=== PATIENT | male | born 1940 | race Caucasian/White ===

== ENCOUNTER 2019-07-17 20:45 | Emergency (ER) | payer MEDICARE, SELFPAY ==
--- NOTE | ~2019-07-17 | CT_ITS ---
EXAMINATION: CT abdomen pelvis w con EXAM DATE: 07/17/2019 21:56 INDICATION: Left upper quadrant pain. Left anterior lower rib pain. TECHNIQUE: Spiral CT of the abdomen and pelvis was performed following intravenous injection of 100 m L Omnipaque 350. Axial, coronal and sagittal images were reviewed. The dose-length product (DLP) fo r this examination was 450.93 mGy-cm. The exposure was tailored according to patient size (auto mA e xposure control), and iterative reconstruction (ASIR) was used as additional dose reduction technique . There is no prior study for comparison. FINDINGS: There are liver and splenic granulomata. The liver, spleen, adrenal glands and pancreas ar e otherwise unremarkable. The gallbladder is contracted but otherwise unremarkable. Portal and sple fercho veins are patent. Kidneys enhance symmetrically. There is no hydronephrosis. There is a cyst at the lower pole of the left kidney measuring 5 cm. Prostate not identified, may been resected. The bladder is unremarkable. There is no retroperitoneal or pelvic lymphadenopathy. There is mild to m oderate scattered arteriosclerotic disease. Cecal resection. Stomach is distended but otherwise unremarkable. There is a distal ileal loops whic h has herniated into the right inguinal canal with a moderate sized hernia. There is mild to moderate colonic diverticulosis. There is no adjacent inflammatory change to suggest diverticulitis. There i s expected amount of colonic stool. No free intraperitoneal gas. The heart is normal in size. Th ere are no pericardial or pleural effusions. There is moderate emphysema and right basilar predomina nt pulmonary fibrosis. Acute nondisplaced left eighth and ninth rib fractures in the mid axillary li ne. IMPRESSION: 1. Acute left eighth and ninth rib fractures laterally. 2. Moderate-sized right inguinal hernia containing nonobstructed distal ileum. 3. Sigmoid colonic diverticulosis. 4. Basilar emphysema and fibrosis. Reviewed, dictated and finalized at location A. 'S MASTER
[2019-07-17 20:48] VITALS: BP 156/80; PULSE 88; RESP 20; TEMP 36.9; O2SAT 99
--- NOTE | 2019-07-17 21:11 | ED.FALL ---
HPI - Fall General Chief Complaint: Fall Stated Complaint: fall/abd pain Time Seen by Provider: 07/17/19 20:54 Source: patient Mode of arrival: wheelchair Limitations: no limitations History of Present Illness HPI Narrative: This is a 79 year old male that presents to the ER for left upper quadrant abdominal pain since a fall this afternoon. Reports he tripped over a rug and fell into a table. Reports since he has had pain in the left lower ribs and left upper quadrant. Pain is worse with movement and relieved with rest. Reports he put some ice on the area with little relief. Denies hitting his head, loss of consciousness, other injuries, shortness of breath, vision changes, or vomiting. Related Data Allergies Allergy/AdvReac Type Severity Reaction Status Date / Time No Known Allergies Allergy Verified 07/17/19 20:59 Review of Systems Review of Systems: Narrative: CONSTITUTIONAL: Denies fever EYES: Denies visual changes CARDIOVASCULAR: Reports chest pain RESPIRATORY: Denies dyspnea. GASTROINTESTINAL: Reports abdominal pain. Denies nausea, vomiting, or diarrhea. MUSCULOSKELETAL: Denies back pain NEUROLOGIC: Denies numbness, or weakness. All systems reviewed & are unremarkable except as noted in HPI and below PMFSH Past Medical History Medical History (Updated 07/17/19 @ 22:23 by Elke Dunlap PA-C) History of hypertension History of prostate cancer Social History Social History Smoking status: Former smoker Alcohol intake: never Exam Narrative: Exam Narrative: GENERAL: Well-appearing, well-nourished, and in no acute distress. HEAD: Normocephalic, atraumatic. EYES: PERRLA and EOMI. ENT: Nares clear, no rhinorrhea or epistaxis. Mucous membranes moist. Oropharynx without tonsillar hypertrophy exudate or other lesions. Bilateral TMs pearly brock non-bulging NECK: Supple. No adenopathy or masses. No midline spinal tenderness CHEST: Clear to auscultation. No respiratory distress. No wheezes rales or rhonchi. Tender to palpation of the left lower ribs anteriorly HEART: Regular rate and rhythm. No murmur heard. Normal peripheral pulses. ABDOMEN: Soft, nondistended, normal active bowel sounds. Mild tenderness to palpation of the LUQ, without guarding BACK: No midline spinal tenderness EXTREMITIES: Normal range of motion. No edema. Strength equal in bilateral upper and lower extremities SKIN: Warm, dry, no rash. NEURO: No focal deficits. Alert and oriented x3. Cranial nerves II through XII grossly intact PSYCH: Normal mood and affect Course Vital Signs Vital signs: Vital Signs Temperature 98.5 F 07/17/19 20:48 Pulse Rate 88 07/17/19 20:48 Respiratory Rate 20 07/17/19 20:48 Blood Pressure 156/80 H 07/17/19 20:48 Pulse Oximetry 99 07/17/19 20:48 Temperature 98.5 F 07/17/19 20:48 Pulse Rate 88 07/17/19 20:48 Respiratory Rate 20 07/17/19 20:48 Blood Pressure 156/80 H 07/17/19 20:48 Pulse Oximetry 99 07/17/19 20:48 MDM - Fall MDM Narrative Medical decision making narrative: Patient presents the emergency department for left lower rib pain and left upper quadrant abdominal pain after fall today. Vitals are stable. CBC with mild normocytic anemia with hemoglobin of 12.4. Metabolic panel with mild elevation in blood glucose, otherwise no acute changes. CT abdomen pelvis shows acute left eighth and ninth rib fractures laterally. No acute intra-abdominal findings. Patient and family were updated on case findings. He was given an incentive spirometer. He will be given a pain medication as needed. He is to follow-up with his primary care doctor. He was given warnings to return to the ER Lab Data Attestation: I reviewed the patient's lab results. Result diagrams: 07/17/19 21:23 07/17/19 21:23 Labs: Lab Results 07/17/19 07/17/19 07/17/19 Range/Units 21:23 21:23 21:23 WBC 10.7 H (4.5-10.0) K/mm3 RBC 4.47 L (4.6-6.20) M/mm3 Hgb 12.4 L
[2019-07-17 21:29] LABS: Hematocrit 38.4 % (42.0-52.0); Hemoglobin 12.4 g/dL (14.0-18.0); Mean Corpuscular HGB Conc 32.3 g/dl (32-36); Mean Corpuscular Hemoglobin 27.7 pg (26-34); Mean Corpuscular Volume 85.9 fl (80-100); Platelet Count Result 279 k/mm3 (150-375); Red Blood Count 4.47 M/mm3 (4.6-6.20); Red Cell Distribution Width 14.7 % (11.5-14.5); White Blood Count 10.7 K/mm3 (4.5-10.0)
[2019-07-17 21:40] LABS: Blood Urea Nitrogen 19 mg/dL (9-20); Calcium 8.7 mg/dL (8.4-10.2); Carbon Dioxide 26 mmol/L (22-30); Chloride 110 mmol/L (98-107); Estimated CRCL calculation 55 ml/min; Estimated Glomerular Filt Rate > 60; Glucose 146 mg/dL (75-110); Potassium 3.9 mmol/L (3.4-5.0); Sodium 141 mmol/L (137-145)
[2019-07-17 21:41] LABS: Partial Thromboplastin Time 26.9 SECONDS (22.3-36.8)
[2019-07-17 21:43] LABS: Band Neutrophils Percent 4 % (0-6); Eosinophils Percent Manual 1 % (0-4); Lymphocytes Absolute Manual 0.64 K/mm3 (1.1-4.5); Monocytes Absolute Manual 0.53 K/mm3 (0.1-0.90); Monocytes Percent Manual 5 % (3-9); Neutrophils Absolute Manual 9.41 K/mm3 (1.3-6.7); Neutrophils Percent Manual 84 % (46-73); Total Cells Counted 100
[2019-07-17 21:44] LABS: Anisocytosis 1+ (NORMAL); Platelet Estimate Adequate (Adequate)
[2019-07-17 22:53] VITALS: BP 145/87; PULSE 83; RESP 18; TEMP 36.3; O2SAT 99
== END 2019-07-17 22:56 | disposition home or self-care (01) ==
PROVIDERS: Physician Assistant; Emergency Provider Emergency Medicine; PCP Physician Assistant
DX: S22.42XA Multiple fractures of ribs, left side, initial encounter for closed fracture (principal); I10 Essential (primary) hypertension; Z85.46 Personal history of malignant neoplasm of prostate; K40.90 Unilateral inguinal hernia, without obstruction or gangrene, not specified as recurrent; K57.90 Diverticulosis of intestine, part unspecified, without perforation or abscess without bleeding; J43.9 Emphysema, unspecified; J84.10 Pulmonary fibrosis, unspecified; Z87.891 Personal history of nicotine dependence; W01.190A Fall on same level from slipping, tripping and stumbling with subsequent striking against furniture, initial encounter
CPT/HCPCS: 36415; 74177; 80048; 85025; 85610; 85730; 99284; Q9967

== ENCOUNTER 2021-04-24 11:54 | Outpatient (CLI) | payer MEDICARE, SELFPAY ==
--- NOTE | ~2021-04-24 | US_ITS ---
EXAMINATION: US venous doppler UE DATE: 04/24/2021 12:38 INDICATION: Left upper extremity pain TECHNIQUE: Grayscale ultrasound images without and with compression and Doppler ultrasound images of the left upper extremity veins were obtained. COMPARISON: None. FINDINGS: The left internal jugular vein, subclavian vein, axillary vein, brachial veins, basilic vein, cephali c vein, radial vein, and ulnar vein are patent. IMPRESSION: 1. No evidence of deep venous thrombosis. Reviewed, dictated and finalized at location A. ING ROOM OPERATOR
== END 2021-04-24 11:55 | disposition home or self-care (01) ==
LOC: ANHIMG 12:05
PROVIDERS: PCP Physician Assistant; Visit Provider Physician Assistant
DX: M79.602 Pain in left arm (principal)
CPT/HCPCS: 93971

== ENCOUNTER → 2022-09-17 12:37 | Outpatient (CLI) | payer MEDICARE, SELFPAY ==
--- NOTE | ~2022-09-17 | US_ITS ---
EXAMINATION: US thyroid DATE: 09/17/2022 13:03 INDICATION: Thyroid nodule. TECHNIQUE: Multiple ultrasound images of the thyroid were obtained. COMPARISON: None. FINDINGS: The right thyroid lobe measures 5.4 x 3.7 x 2.6 cm. The left thyroid lobe measures 5.1 x 2.3 x 1.7 c m. In the right thyroid lobe, there is a 4.0 cm solid, hypoechoic, wider than tall nodule with ill-d efined margin without echogenic foci (TI-RADS TR4). In the left thyroid lobe, there is a 10 mm solid, isoechoic, wider than tall nodule with ill-defined margin without echogenic foci (TR3). In the left thyroid lobe, there is 11 mm solid, isoechoic, wider than tall nodule with ill-defined margin without echogenic foci (TR3). IMPRESSION: 1. Multinodular goiter. Ultrasound-guided fine-needle aspiration of the right thyroid nodule is recom mended. Reviewed, dictated and finalized at location A. IMPRESSION: 1. Multinodular goiter. Ultrasound-guided fine-needle aspiration of the right t hyroid nodule is recommended.
== END ==
PROVIDERS: PCP Physician Assistant; Visit Provider Internal Medicine Pulmonary Disease
DX: E04.2 Nontoxic multinodular goiter (principal)
CPT/HCPCS: 76536

== ENCOUNTER 2022-10-12 13:45 | Outpatient (RCR) | payer MEDICARE, SELFPAY ==
--- NOTE | 2022-07-15 16:07 | PTOPEVAL1 ---
Assessment and note entered by Gayatri Noel, PT Evaluation Information Assessment Status Evaluation Diagnosis Parkinson's Disease and gait dysfunction Onset about 1 year Subjective Information gradual increase in balance and walking problems; have had 5 falls in the 6 months--walking and turning, backing up, happens fast, not sure why; could get himself off the floor by pulling on the walker or a chair; started using the wheeled walker about 6-7 weeks ago; feel more secure with walking using it and use it all the time; like to walk, have a treadmill at home, not using as much due to R knee pain; GOAL: walk with good balance, not have to use the walker, not have any more falls; Reported Pain Level Pain Score Self Report Additional Pain Score Comments has pain in R knee- intermittent and it gives out Assessment PT Clinical Summary Omer has the diagnosis of Parkinson's, gait dysfunction. He recently started using a wheeled walker and has 5 falls in the past 6 months. was present during eval and supportive to pt. His history includes prostate cancer and is taking hormone therapy, which he feels has made him weak . With the evaluation, he has Cuevas balance score of 41/56- difficulty with eyes closed, 360' turn, small base of support and SLS; 2 minute walking test distance is 225'; TUG is 24 seconds; 5 reps sit/stand is 19 seconds; with walking, he has decreased heel strike and problems with initiating gait. Skilled PT services are indicated for the [facility] Parkinson's program, LE strengthening, gait and balance retraining, to increase safety with mobility and decrease falls, with education for home exercises and safety with mobility. Plan of Care Interventions Hot Pack/Cold Pack,Neuro Re-education,Patient/ Caregiver Education,Therapeutic Activities, Therapeutic Exercise Other Interventions LVST program/exercises PT Services Indicated Yes Treatment Frequency and 2x/wk for 5 weeks Duration These treatments will address the objective and functional deficits as defined above. The patient will be advanced safely and appropriately in order for the patient to progress towards his/her prior level of function. Additional exercises wi
--- NOTE | 2022-08-18 14:37 | PTOPPROG ---
Assessment and note entered by Gayatri Noel, PT Evaluation Information Assessment Status Progress Diagnosis Parkinson's Disease and gait dysfunction Onset about 1 year Subjective Information Omer reports: therapy has helped--walking and balance are better, but not where it needs to be; have not fallen since started therapy; been doing the exercises; reports his balance still is not good;some weakness due to cancer med. Assessment PT Clinical Summary Omer has received 9 PT sessions. Compared to the initial evaluation, he has improved with: sit to stand transfer does not lean his thigh on the chair; SLS- able to lift R and L foot and hold for 2-3 seconds; TUG by 2 sec; Cuevas balance score by 5 points to 46/56; strength and coordination of R and L ankle with sitting ankle circles; increased awareness of his gait pattern and how he needs to correct it; He has been educated on HEP and LSVT program. He has not had any falls since starting therapy. is very supportive of pt and assists him with HEP and safety reminders. The goals were partially met. Continue PT treatment to further increase LE strength, gait, balance and mobility skills. With progression of HEP and planning for discharge at next reevaluation. Plan of Care Interventions Gait Training,Neuro Re-education,Patient/Caregiver Education,Therapeutic Activities,Therapeutic Exercise Other Interventions LVST program/exercises PT Services Indicated Yes Treatment Frequency and 2x/wk for 4 weeks Duration These treatments will address the objective and functional deficits as defined above. The patient will be advanced safely and appropriately in order for the patient to progress towards his/her prior level of function. Additional exercises will be introduced and as well as a comprehensive home exercise program upon discharge, if needed, ?to ensure carryover of functional gains achieved in the clinic. This treatment plan has been reviewed and agreement upon by the patient.
--- NOTE | 2022-09-13 14:22 | PTOPEVAL1 ---
Assessment and note entered by Gayatri Noel, PT Evaluation Information Assessment Status Progress Diagnosis bilateral anterior knee pain Onset about 1 year Subjective Information Omer and Charmaine report: walking is better, feeling better; have been doing the Parkinson's/ LSVT exercises at home; saw the knee dr- have a new PT order; changed his med to diflocan and it is helping his knee pain; dr told him not to do sit to stand exercises--has to use his arms for sit to standing; PAIN: range of 1-3/10 R knee; new pain med is helping; increase pain with standing, steps and walking; use the wheeled walker; heat helps decrease his pain; have tried a velcro brace and it did not help; Reported Pain Level Pain Score Self Report Additional Pain Score Comments range of 1-3/10 R knee; new pain med is helping; increase pain with standing, steps and walking; use the wheeled walker; heat helps decrease his pain; have tried a velcro brace and it did not help; Assessment PT Clinical Summary Omer has received 13 PT sessions for gait/balance, LSVT/Parkinson's program. Compared to the last reevaluation, he is about the same with TUG, 2 minute walking test distance and TUG; he has improved with single leg standing tolerance R and L, Cuevas balance score. He presents with new orders from Dr Flynn for bilateral anterior knee pain. Knee evaluation today, he has pain in R knee, decreased ROM and strength of R knee and hip. Skilled PT services are indicated for modalities to decrease pain in knee, therapeutic exercises to increase strength and flexibility of kness with education for home exercises. He continues to use the wheeled walker for ambulation. Discussed aquatic therapy with pt and he is not interested in, does not like doing water exercises. Plan of Care Interventions Electrical Stimulation,Gait Training,Hot Pack/Cold Pack,Manual Therapy,Neuro Re-education,Patient/ Caregiver Educati,Therapeutic Activities, Therapeutic Exercise,Ultrasound Other Interventions LVST program/exercises PT Services Indicated Yes
--- NOTE | 2022-10-12 14:21 | PTOPDC ---
Assessment and note entered by Gayatri Noel, PT Evaluation Information Assessment Status Discharge Diagnosis bilateral anterior knee pain Onset about 1 year Subjective Information Omer reports: is walking better; balance is better; in the house, for short walks-not using the walker; have not had any falls; have been doing the exercises; pleased with his progress; is going out into the community without any problems; reports: some short term memory and suspicious phobias are occuring with Omer; Reported Pain Level Pain Score Self Report Additional Pain Score Comments pain range in the past week: 1-8/10; showed pt a sample knee brace, [employer]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 Compared to the last reevaluation: R knee pain has increased rating at worst from 2 to 8/10, but he states today not sure about those numbers and how to rate it. His activity level has increased with reported home and community outings /activities; he has not had any falls; TUG has improved by 2 seconds and 2 minute walking test distance increased by 15'. He is performing his HEP with cues from his for technique of movement and to do them. The goals were partially achieved. Discharge PT services; he is to continue with the HEP--leg strengthening and LSVT exercises. He has the LSVT video exercise program. Plan of Care PT Services Indicated No
== END 2022-10-12 16:01 | disposition home or self-care (01) ==
LOC: ANHPT 13:45
PROVIDERS: PCP Physician Assistant
DX: G20 Parkinson's disease (principal)
CPT/HCPCS: 97110; 97116; 97161; 97530

== ENCOUNTER 2023-10-15 15:12 | Emergency (ER) | payer MEDICARE, SELFPAY ==
[2023-10-15] VITALS (25 sets, daily range): BP systolic 94–129; BP diastolic 45–81; PULSE 81–93; RESP 12–28; TEMP 37.1; O2SAT 90–100
--- NOTE | ~2023-10-15 | CT_ITS ---
EXAMINATION: CT pelvis wo con DATE: 10/15/2023 18:07 INDICATION: Pelvic pain. TECHNIQUE: Computed tomography (CT) of the pelvis was performed without intravenous contrast. Automat ed exposure control and iterative reconstruction technique were employed. The dose-length product was 368.27 mGy-cm. COMPARISON: CT abdomen pelvis 07/17/2019 FINDINGS: There are no dilated loops of bowel. There are no pathologically enlarged lymph nodes. Ther e is no free intraperitoneal fluid. Bone alignment is normal. There is a transverse fracture of S3 se gment in near-anatomic alignment. There is mild osteoarthrosis of the hips. There is severe lower lum bar spondylosis. IMPRESSION: 1. Transverse fracture of the S3 segment in near-anatomic alignment. Reviewed, dictated and finalized at location E.
--- NOTE | ~2023-10-15 | CT_ITS ---
EXAMINATION: CT lumbar spine wo con DATE: 10/15/2023 18:07 INDICATION: Low back pain. Pelvic pain. TECHNIQUE: Computed tomography (CT) of the lumbar spine was performed without intravenous contrast. A utomated exposure control and iterative reconstruction technique were employed. The dose-length produ ct was 887.90 mGy-cm. COMPARISON: CT abdomen and pelvis 07/17/2019 FINDINGS: There is 3 degrees dextrocurvature of lumbar spine. There is a compression fracture of L2 w ith 1/5 loss of height. There is a chronic right L4 pars defects. There is 3 mm anterolisthesis of L4 on L5. There is a transverse fracture of S3 segment. There is mildly decreased disc height at L3-L4 and L4-L5 and severely decreased disc height at L5-S1. The following disc levels are specifically dis cussed: L1-L2: The disc is bulging. There is moderate right and mild left facet joint osteoarthritis. There i s mild bilateral neural foraminal stenosis. There is mild central canal stenosis. L2-L3: The disc is bulging. There is severe bilateral facet joint osteoarthritis. There is mild bilat eral neural foraminal stenosis. There is mild central canal stenosis. L3-L4: The disc is bulging. There is moderate bilateral facet joint osteoarthritis. There is mild nydia ateral neural foraminal stenosis. There is mild central canal stenosis. L4-L5: The disc is bulging. There is severe bilateral facet joint osteoarthritis. There is moderate b ilateral neural foraminal stenosis. There is mild central canal stenosis with posterior decompression . L5-S1: The disc is bulging. There is severe bilateral facet joint osteoarthritis. There is severe rig ht and mild left neural foraminal stenosis. There is mild central canal stenosis. IMPRESSION: 1. Acute L2 compression fracture. 2. Transverse fracture of S3 segment. 3. Chronic right L4 pars defect. 4. Severe lumbar spondylosis. Reviewed, dictated and finalized at location E.
--- NOTE | ~2023-10-15 | CT_ITS ---
EXAMINATION: CT brain wo con DATE: 10/15/2023 18:06 INDICATION: Head injury. TECHNIQUE: Computed tomography (CT) of the head was performed without intravenous contrast. The mA wa s adjusted according to patient size. Iterative reconstruction technique was employed. The dose-lengt h product was 605.33 mGy-cm. COMPARISON: None FINDINGS: There is no intracranial hemorrhage, acute infarction, or abnormal intracranial mass lesion . There is diffuse brain volume loss. The ventricles are normal in size. There are likely changes of ocular lens replacement surgeries. There is mild mucosal thickening in the paranasal sinuses. The mas toid air cells are normal. IMPRESSION: 1. Normal aging brain. Reviewed, dictated and finalized at location E. IMPRESSION: 1. Normal aging brain.
--- NOTE | 2023-10-15 16:45 | ED.GENADULT ---
HPI - General Adult General Chief complaint: Fall Stated complaint: glf, back pain Time Seen by Provider: 10/15/23 15:13 History of Present Illness HPI narrative: 83-year-old male presents to the emergency department for evaluation after having a fall in his house. Patient does have history of Parkinson's disease, does have some gait stability issues and does use a walker. Patient attempted to do a U-turn on the walker causing him to lose his balance and fall. Patient states since then he has had lower back pain worsened with movement. While at rest he denies any back pain. Denies any new numbness or weakness. Related Data Home Medications Medication Instructions Recorded Confirmed aspirin 81 mg tablet,delayed 81 mg PO DAILY 10/12/23 release (Adult Aspirin Regimen) carbidopa ER 25 mg-levodopa 100 mg 2 tablet PO TID 10/12/23 tablet,extended release cyanocobalamin (vitamin B-12) 500 250 mcg PO DAILY 10/12/23 mcg tablet donepezil 5 mg tablet 5 mg PO QHS 10/12/23 empagliflozin 10 mg tablet 10 mg PO DAILY 10/12/23 ferrous sulfate 325 mg (65 mg 325 mg PO DAILY 10/12/23 iron) tablet furosemide 20 mg tablet 20 mg PO QAM 10/12/23 ipratropium bromide 21 mcg (0.03 2 spray intranasal BID 10/12/23 %) nasal spray megestrol 20 mg tablet 20 mg PO BID 10/12/23 metoprolol tartrate 25 mg tablet 12.5 mg PO DAILY 10/12/23 polyethylene glycol 3350 17 17 g PO DAILY 10/12/23 gram/dose oral powder (Miralax) rosuvastatin 20 mg tablet 20 mg PO DAILY 10/12/23 spironolactone 25 mg tablet 12.5 mg PO DAILY 10/12/23 vitamins A,C,I-bjhn-watzob 4,296 1 cap PO BID 10/12/23 mcg-226 mg-90 mg capsule (ICaps AREDS) Allergies Allergy/AdvReac Type Severity Reaction Status Date / Time No Known Allergies Allergy Verified 10/12/23 15:16 Review of Systems Review of Systems: All systems reviewed & are unremarkable except as noted in HPI and below PMFSH Past Medical History Medical History (Updated 10/15/23 @ 19:55 by Og Mishra MD) CHF (congestive heart failure) History of hypertension History of prostate cancer Parkinsons disease Family History Family History (Updated 10/12/23 @ 15:18 by Darshana Kaur [facility]) Sibling Diabetes mellitus Mother Cerebrovascular accident Father Throat cancer Social History Social History (Updated 10/12/23 @ 15:22 by Elizabet Oneill [facility]) Smoking status: Former smoker Alcohol intake: never Substance use type: does not use Do You Feel Safe in your Home?: Yes Lack of Transportation: No Lack of Food: Never True Current Housing: I Have Housing Concerned About Future Housing: No Difficulty Paying Gas/Electric Bills: No Difficulty Paying for Meds: No Currently Unemployed: No Education: High School Diploma/GED Difficulty w/ Childcare or Family Care: No Living arrangements: with family Occupation/Education: retired Exam Narrative: APPEARANCE: Well appearing, no pain, no distress, well-nourished. HEAD: normocephalic, atraumatic. EYES: PERRLA/EOMI, conjunctivae clear. NOSE: Normal no drainage EARS:TMS clear with good light reflex. THROAT: Pharynx clear, no exudate. NECK: Supple. No adenopathy, no masses. RESPIRATORY: Airway patent, respirations nonlabored. Clear to auscultation bilaterally, no rales, rhonchi, wheezing. CARDIOVASCULAR: Regular rate and rhythm without murmurs rubs or gallops. ABDOMINAL: Soft, nontender, nondistended, normal bowel sounds MUSCULOSKELETAL: No midline tenderness for lumbar or sacral spine but patient reports when he sits up he has tenderness in the lower back NEURO: Alert. Cranial nerves II through XII intact. Good gait. Good coordination SKIN: Warm, dry. Normal Color Course Vital Signs Vital signs: Vital Signs Temperature 98.7 F 10/15/23 15:12 Pulse Rate 87 10/15/23 15:12 Respiratory Rate 26 H 10/15/23 15:12 Blood Pressure 119/78 10/15/23 15:12 Pulse Oximetry 98 10/15/23 15:
[2023-10-15] MEDS: CYCLOBENZAPRINE HCL 10 MG TABLET PO (16:56)
[2023-10-15] MEDS: HYDROcodone/acetaminophen (*CRX) 5-325 MG TABLET 1 TAB PO (20:46)
== END 2023-10-15 20:47 | disposition home or self-care (01) ==
PROVIDERS: Emergency Provider Emergency Medicine; PCP Physician Assistant
DX: S32.10XA Unspecified fracture of sacrum, initial encounter for closed fracture (principal); M47.816 Spondylosis without myelopathy or radiculopathy, lumbar region; I11.0 Hypertensive heart disease with heart failure; I50.9 Heart failure, unspecified; G20.A1 Parkinson's disease without dyskinesia, without mention of fluctuations; Z85.46 Personal history of malignant neoplasm of prostate; W01.0XXA Fall on same level from slipping, tripping and stumbling without subsequent striking against object, initial encounter
CPT/HCPCS: 70450; 72131; 72192; 99284; A9270

== ENCOUNTER 2023-10-19 04:02 | Emergency (ER) | payer MEDICARE, SELFPAY ==
[2023-10-19 04:01] VITALS: BP 144/90; PULSE 100; RESP 20; TEMP 36.6; O2SAT 96
[2023-10-19 04:10] VITALS: BP 144/90; PULSE 100; RESP 27; TEMP 36.6; O2SAT 98
--- NOTE | 2023-10-19 04:30 | ED.GENADULT ---
HPI - General Adult General Chief complaint: Unspecified <Roland Schmitz MD - Last Filed: 10/19/23 19:23> Stated complaint: constipation <Roland Schmitz MD - Last Filed: 10/19/23 19:23> Time Seen by Provider: 10/19/23 04:03 <Roland Schmitz MD - Last Filed: 10/19/23 19:23> History of Present Illness HPI narrative: Patient is an 83-year-old male who presents to the emergency department complaining of constipation. Patient was seen in our facility 4 days ago for back pain at that time was diagnosed with a lumbar vertebral fracture. Patient states that he has been taking MiraLax daily which he normally does despite being on narcotics and his who is present at bedside has doubled his dose to twice daily with no bowel movement. Patient also takes Colace. Patient states that it has been approximately 4 days since he has had a bowel movement. He is currently denying any abdominal pain or any symptoms whatsoever other than inability to poop. Denies any rectal pain. No additional symptoms or concerns at this time. <Roland Schmitz MD - Last Filed: 10/19/23 19:23> Related Data Home medications: Home Medications Medication Instructions Recorded Confirmed aspirin 81 mg tablet,delayed 81 mg PO DAILY 10/12/23 release (Adult Aspirin Regimen) carbidopa ER 25 mg-levodopa 100 mg 2 tablet PO TID 10/12/23 tablet,extended release cyanocobalamin (vitamin B-12) 500 250 mcg PO DAILY 10/12/23 mcg tablet donepezil 5 mg tablet 5 mg PO QHS 10/12/23 empagliflozin 10 mg tablet 10 mg PO DAILY 10/12/23 ferrous sulfate 325 mg (65 mg 325 mg PO DAILY 10/12/23 iron) tablet furosemide 20 mg tablet 20 mg PO QAM 10/12/23 ipratropium bromide 21 mcg (0.03 2 spray intranasal BID 10/12/23 %) nasal spray megestrol 20 mg tablet 20 mg PO BID 10/12/23 metoprolol tartrate 25 mg tablet 12.5 mg PO DAILY 10/12/23 polyethylene glycol 3350 17 17 g PO DAILY 10/12/23 gram/dose oral powder (Miralax) rosuvastatin 20 mg tablet 20 mg PO DAILY 10/12/23 spironolactone 25 mg tablet 12.5 mg PO DAILY 10/12/23 vitamins A,C,B-ulwe-voffab 4,296 1 cap PO BID 10/12/23 mcg-226 mg-90 mg capsule (ICaps AREDS) <Roland Schmitz MD - Last Filed: 10/19/23 19:23> Allergies/adverse reactions: Allergies Allergy/AdvReac Type Severity Reaction Status Date / Time No Known Allergies Allergy Verified 10/19/23 04:08 <Roland Schmitz MD - Last Filed: 10/19/23 19:23> Review of Systems Review of Systems: All systems are reviewed and are negative unless stated otherwise in the HPI. <Roland Schmitz MD - Last Filed: 10/19/23 19:23> PMFSH Past Medical History Medical History: Medical History CHF (congestive heart failure) History of hypertension History of prostate cancer Parkinsons disease <Roland Schmitz MD - Last Filed: 10/19/23 19:23> Family History Family History: Family History Sibling Diabetes mellitus Mother Cerebrovascular accident Father Throat cancer <Roland Schmitz MD - Last Filed: 10/19/23 19:23> Social History Social History: Social History Smoking status: Former smoker Alcohol intake: never Substance use type: does not use Do You Feel Safe in your Home?: Yes Lack of Transportation: No Lack of Food: Never True Current Housing: I Have Housing Concerned About Future Housing: No Difficulty Paying Gas/Electric Bills: No Difficulty Paying for Meds: No Currently Unemployed: No Education: High School Diploma/GED Difficulty w/ Childcare or Family Care: No Living arrangements: with family Occupation/Education: retired <Roland Schmitz MD - Last Filed: 10/19/23 19:23> Exam Narrative: General: Alert, awake, afebrile, in no acute distress. HEEN
[2023-10-19] MEDS: MAGNESIUM HYDROXIDE SUSP 30 ML UDC PO (05:32)
[2023-10-19 06:39] VITALS: BP 122/94; PULSE 98; RESP 20; O2SAT 100
[2023-10-19 08:30] VITALS: BP 142/77; PULSE 100; RESP 20; O2SAT 98
== END 2023-10-19 08:58 | disposition home or self-care (01) ==
PROVIDERS: Emergency Provider Emergency Medicine; PCP Physician Assistant
DX: K59.00 Constipation, unspecified (principal); I50.9 Heart failure, unspecified; I11.0 Hypertensive heart disease with heart failure; Z85.46 Personal history of malignant neoplasm of prostate; G20.A1 Parkinson's disease without dyskinesia, without mention of fluctuations; Z87.891 Personal history of nicotine dependence
CPT/HCPCS: 99283; A9270

== ENCOUNTER 2024-01-17 12:30 | Outpatient (RCR) | payer MEDICARE, SELFPAY ==
--- NOTE | 2023-12-05 16:38 | OPREHPOC ---
Outpatient Therapy Plan of Care This is a Multidisciplinary Plan of Care that may contain components documented by all disciplines (PT, OT, and ST.) PT Problem 1 PT Problem #1 Knowledge Deficit PT Goal 1 Goal Bertie with HEP Target Visit 4 PT Problem 2 PT Problem #2 Impaired Strength PT Goal 1 Goal Improve nydia hip flexion to 4/5 to improve foot clearance with gait Target Visit 10 PT Goal 2 Goal Improve nydia hip abduction to 4/5 to improve lateral stability with gait and transfers Target Visit 10 PT Problem 3 PT Problem #3 Impaired Gait PT Goal 1 Goal Ambulate 150' with 2 w/w and CGA x 1 for home mobility Target Visit 10 PT Goal 2 Goal Demonstrate ability to stand on uneven surface for greater than 30s for improved proprioception for home safety Target Visit 10 PT Problem 4 PT Problem #4 Impaired Balance PT Goal 1 Goal Demonstrate Tinetti score of 19 or greater to minimze fall risk Target Visit 10
--- NOTE | 2023-12-05 16:39 | PTOPEVAL1 ---
Assessment and note entered by Minor Crane, PT Evaluation Information Assessment Status Evaluation ICD-10 Condition Codes (PT) R26.9,Weakness R53.1 Onset 10/15/23 Subjective Information Reports that since September he has had multiple falls. He has injured his back at L2 and S3. He was on a wheeled walker prior to last fall. He will be receiving a cortisone injection in L4-L5. reports that he has been having pain down the left leg. Denies pain with sitting but if he sits for a long time it hurts. When he goes to lay back he has the most pain. reports that he is unstable with transfers and he does not take many steps. He has to be holding onto something to transfer safely. Family has 3 steps to enter home. Reported Pain Level Pain Score 0: Self Report Assessment PT Clinical Summary Patient presents with hip and knee weakness and poor balance with functional mobility. Patient is wheelchair dependent for moderate walking distance and demonstrates significant safety issues with transfers and short distance walking. Will benefit form skilled therapy to address these deficits for full functional improvement and return to modified independence with wheeled walker. Plan of Care Interventions Electrical Stimulation,Hot Pack/Cold Pack,Manual Therapy,Neuro Re-education,Therapeutic Activities, Therapeutic Exercise PT Services Indicated Yes Treatment Frequency and 2x/week for 10 visits Duration These treatments will address the objective and functional deficits as defined above. The patient will be advanced safely and appropriately in order for the patient to progress towards his/her prior level of function. Additional exercises will be introduced and as well as a comprehensive home exercise program upon discharge, if needed, ?to ensure carryover of functional gains achieved in the clinic. This treatment plan has been reviewed and agreement upon by the patient.
--- NOTE | 2024-01-17 13:27 | PTOPDC ---
Assessment and note entered by Gayatri Noel, PT Discharge Report Assessment Status Discharge ICD-10 Condition Codes (PT) R26.9,Weakness R53.1 Onset 10/15/23 Subjective Information at home, only walks when is behind him with the w/c; uses the wheel chair to get himself from room/room; is using the knee brace and it helps support my knee; have been doing the leg exercises at home-- need the harder band; Reported Pain Level Pain Score Self Report Additional Pain Score Comments pain range of knee in the past week 3-02/22; the knee brace does help; standing and walking increase his pain; knee gives away when he is walking; Assessment PT Clinical Summary Omer has received 10 PT sessions. Compared to the initial evaluation: improved with gait and LE strength; Tinetti balance/gait score of 14/28; continues to have R knee pain, but he is now using a hinged knee brace for support, which seems to help; education completed for HEP and safety with mobility. The goals were met, except Tinetti balance score. Discharge PT. He is to continue with his HEP. Plan of Care PT Services Indicated No
== END 2024-01-17 14:25 | disposition home or self-care (01) ==
LOC: ANHPT 12:30
PROVIDERS: PCP Physician Assistant; Visit Provider Physician Assistant
DX: M62.81 Muscle weakness (generalized) (principal)
CPT/HCPCS: 97110; 97116; 97140; 97161; 97530